=== PATIENT | female | born 1975 | race Caucasian/White ===

== ENCOUNTER 2017-09-11 12:58 | Outpatient (CLI) | payer BC | END 2017-09-11 12:59 | disposition home or self-care (01) | LOC: BICMAMMO 12:58 | DX: N64.4 Mastodynia (principal); N60.02 Solitary cyst of left breast; N64.52 Nipple discharge | CPT/HCPCS: 77066; G0279 ==

== ENCOUNTER 2017-10-04 09:55 | Outpatient (CLI) | payer BC | END 2017-10-04 09:56 | disposition home or self-care (01) | LOC: BICULT 09:55 | DX: N64.52 Nipple discharge (principal); Q18.0 Sinus, fistula and cyst of branchial cleft ==